=== PATIENT | female | born 1955 | race Caucasian/White ===

== ENCOUNTER 2018-02-24 12:45 | Emergency (ER) | payer OTHER ==
[~2018-02-24] VITALS: Ht 162.6 cm; Wt 99.8 kg
[~2018-02-24 12:45] MED LIST: MOBIC15 MG PO
[2018-02-24 13:39] LABS: ABSOLUTE BASOPHIL COUNT 0 /CUMM (0.0-0.2); ABSOLUTE EOSINOPHIL COUNT 0.1 /CUMM (0.0-0.7); ABSOLUTE GRANULOCYTE CT 3.1 /CUMM (1.4-6.5); ABSOLUTE LYMPH COUNT 0.8 /CUMM (1.2-3.4); ABSOLUTE MONOCYTE COUNT 0.4 /CUMM (0.10-0.60); BASOPHIL % 0.5 % (0.0-2.0); EOSINOPHIL % 1.9 % (0-5); GRANULOCYTE % 70.8 % (42.2-75.2); HEMATOCRIT 34.7 % (37-47); MEAN CORPUSCULAR HGB 23.1 PG (27.0-31.0); MEAN CORPUSCULAR HGB CONC 31.8 G/DL (33.0-37.0); MEAN CORPUSCULAR VOLUME 72.4 FL (81.0-99.0); MEAN PLATELET VOLUME 9.3 FL (7.4-10.4); PLATELET COUNT 88 /CUMM (130-400); RED BLOOD CELL CT 4.78 /CUMM (4.20-5.40); WHITE BLOOD CELL COUNT 4.4 /CUMM (4.8-10.8)
--- NOTE | 2018-02-24 14:14 | ED GENERAL ADULT ---
History of Present Illness General Chief Complaint: General Adult Stated Complaint: SIB PCP FOR "NOT FEELING THAT WELL" X1 WEEK Source: patient Exam Limitations: no limitations Vital Signs & Intake/Output Vital Signs & Intake/Output Vital Signs Date Time Temp Pulse Resp B/P B/P Pulse O2 O2 Flow FiO2 Mean Ox Delivery Rate 02/24 1547 98.2 82 17 162/86 97 Room Air 02/24 1253 97.6 71 20 163/83 95 Room Air Allergies Coded Allergies: codeine (Intermediate, N/V 02/24/18) morphine (Intermediate, N/V 02/24/18) oxycodone (Intermediate, N/V 02/24/18) Reconcile Medications Cephalexin (Keflex) 500 MG CAPSULE 1 CAP PO BID cellulitis right arm/UTI Ibuprofen (Motrin Ib) 200 MG TABLET 3 TAB PO TID PRN PAIN (Reported) Triage Note: PT SENT BY PCP BAN FOR S/S OF R FLANK TO ABD PAIN AND NOW R ELBOW PAIN/REDNESS SINCE THIS MORNING. HAS HX OF KIDNEY STONES/STENTS AND KIDNEY FAILURE. STATES THIS PAIN FEELS SIMLIAR ONLY DIFFERENCE IS THE PAIN IS WORSE WHEN LAYING DOWN. REPORTS INCREASED URINARY FREQUENCY BUT DENIES OTHER S/S. +N/-V (+WRETCHING), +DIARRHEA ON TUESDAY BUT NOT SINCE, LNBM YESTERDAY. OUMOU GAONA EVALUATING PATIENT AT TRIAGE. Triage Nurses Notes Reviewed? yes HPI: 62 year old female with PMH renal stones requiring stents (since removed) and acute renal failure (resolved) in presenting with one week history of right flank pain radiating to abdomen. Pain is intermittent and sharp in nature. She states it feels similar to renal stones in the past, however not as severe. She has tried to increase PO intake of water and cranberry juice. She has taken Motrin 600-800mg for the past two days with moderate relief of sx. Patient states she was previously treated by Dr. Murcia and required stenting. Her stones have been analyzed and found to be uric acid stones. She has not had any stones since 2010. Since that time she has had an intentional 100lb weight loss. She notified Dr. Robb her PCP of her sx for the past week and he recommended she come to the ED. Of note: patient also reports right elbow redness, swelling, warmth, and tenderness that started this morning. She reports associated nausea without vomiting, diarrhea last week that has since resolved. Denies any chest pain, SOB, dysuria, hematuria, change in bowel habits. 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 (Fariba Fernandes MD) Past History Travel History Traveled to [place] past 21 day No Medical History Any Pertinent Medical History? see below for history Neurological: NONE EENT: NONE Cardiovascular: NONE Respiratory: NONE Gastrointestinal: NONE Hepatic: NONE Renal: nephrolithiasis, ACUTE RENAL FAILURE Musculoskeletal: RUPTURED DISC L ANKLE FX Psychiatric: NONE Endocrine: NONE Blood Disorders: NONE Cancer(s): NONE BUSINESS ADVISOR/Reproductive: miscarriage Influenza Vaccine: 03/15/05 Surgical History Surgical History: hysterectomy, TONSILECTOMY LUMBAR LAMINECTOMY Psychosocial History Who do you live with Son Services at Home None What is your primary language Turkish Tobacco Use: Quit >30 days ago ETOH Use: denies use Illicit Drug Use: denies illicit drug use Family History Hx Contributory? No (Fariba Fernandes MD) Review of Systems Review of Systems Constitutional: Reports: no symptoms. EENTM: Reports: no symptoms. Respiratory: Reports: no symptoms. Cardiovascular: Reports: no symptoms. GI: Reports: abdominal pain, bloating, diarrhea, nausea. Denies: constipation, bloody stool, changes in stool, vomiting. Genitourinary: Reports: frequency. Denies: dysuria, hematuria, urgency. Musculoskeletal: Reports: back pain (right flank radiate to abd). Skin: Reports: rash (right elbow). (Fariba Fernandes MD) Physical Exam Physical Exam General Appearance: well developed/nourished, no apparent distress, alert, awake , obese Head: atraumatic, normal appearance Eyes: Bilateral: normal appearance. Ears, Nose, Throat: moist mucus membranes Neck: normal inspection, supple, full range of motion Respiratory: normal breath sounds, chest non-tender, no respiratory distress Cardiovascular: regular rate/rhythm, normal peripheral pulses Peripheral Pulses: 2+ radial (R), 2+ radial (L) Gastrointestinal: tenderness (TTP diffusely) Back: normal inspection, NO CVA tenderness Extremities: pedal edema Skin: rash, right elbow with erythema, edema, warmth, tenderness to palpation Core Measures ACS in differential dx? No CVA/TIA Diagnosis: No Sepsis Present: No Sepsis Focused Exam Completed? No (Fariba Fernandes MD) Progress Differential Diagnoses I considered the following diagnoses in my evaluation of the patient: [renal stones vs gastroenteritis vs cellulitis vs renal mass vs uti vs pyelonephritis] 15:00 CT results show bilateral non obstructing renal stones and approx 7x7cm right renal mass associated with previous right adrenal mass. Lymphadenopathy is noted. Findings suspicious for RCC. Patient notified; will contact her Nephrology team and follow up. She was given a paper copy of CT findings. ED work up also demonstrates UTI and cellulitis of right elbow. Will send Rx for Keflex 500mg q 12 hours for 10 days. Patient to follow up with PCP. Urine cultures sent. Plan of Care: Orders Procedure Date/time Status Add-on Test (ER Only) 02/24 1500 Active CULTURE,URINE 02/24 1434 Active URINALYSIS 02/24 1301 Complete COMPREHENSIVE METABOLIC PANEL 02/24 1301 Complete CBC WITHOUT DIFFERENTIAL 02/24 1301 Complete Laboratory Tests 02/24/18 1315: Anion Gap 7, Estimated GFR > 60, BUN/Creatinine Ratio 20.0, Glucose 95, Calcium 9.0, Total Bilirubin 0.6, AST 22, ALT 34, Alkaline Phosphatase 55, Total Protein 6.3, Albumin 3.9, Globulin 2.4, Albumin/Globulin Ratio 1.6, CBC w Diff NO MAN DIFF REQ, RBC 4.78, MCV 72.4 L, MCH 23.1 L, MCHC 31.8 L, RDW 19.0 H, MPV 9.3 , Gran % 70.8, Lymphocytes % 18.8 L, Monocytes % 8.0, Eosinophils % 1.9, Basophils % 0.5, Absolute Granulocytes 3.1, Absolute Lymphocytes 0.8 L, Absolute Monocytes 0.4, Absolute Eosinophils 0.1, Absolute Basophils 0, Urine Color YEL, Urine Clarity HAZY H, Urine pH 6.0, Ur Specific [place] 1.015, Urine Protein NEG, Urine Ketones NEG, Urine Nitrite POS H, Urine Bilirubin NEG, Urine Urobilinogen 0.2, Ur Leukocyte Esterase LARGE H, Ur Microscopic SEDIMENT EXAMINED, Urine RBC 1-3, Urine WBC 10-15 H, Ur Epithelial Cells FEW, Urine Bacteria FEW H, Urine Hemoglobin SMALL H, Urine Glucose NEG Microbiology 02/24 1315 URINE ROUT: Urine Culture - RECD Initial ED EKG: none (Fariba Fernandes MD) Departure Departure Time of Disposition: 1503 Disposition: HOME OR SELF CARE Condition: Stable Clinical Impression Primary Impression: Renal mass, right Secondary Impressions: Bilateral kidney stones Cellulitis of right upper extremity UTI (urinary tract infection) Qualifiers: Urinary tract infection type: acute cystitis Hematuria presence: without hematuria Qualified Code: N30.00 - Acute cystitis without hematuria Referrals: Ban MAC,Cristian Kennedy (PCP/Family) Additional Instructions: Please follow up with your PCP. Have him follow up on urine culture results. Complete your full antibiotic course for urinary tract infection and right upper extremity cellulitis. Make an appointment and follow up with Nephrology regarding right renal mass found on CT imaging today. Return to ED if symptoms worsen or for any concerns. Departure Forms: Customer Survey General Discharge Information Prescriptions: Current Visit Scripts Cephalexin (Keflex) 1 CAP PO BID #[id number] CAP (Fariba Fernandes MD) PA/RETAIL PRICING COORDINATOR Co-Sign Statement Statement: ED Attending supervision documentation- I saw and evaluated the patient. I have also reviewed all the pertinent lab results and diagnostic results. I agree with the findings and the plan of care as documented in the PA's/RETAIL PRICING COORDINATOR's documentation. x I have reviewed the ED Record and agree with the PA's/RETAIL PRICING COORDINATOR's documentation. [] Additions or exceptions (if any) to the PAs/RETAIL PRICING COORDINATOR's note and plan are summarized below: [] (Omer MAC,Yevgeniy) Critical Care Note Critical Care Note Critical Care Time: non-applicable (Fariba Fernandes MD)
--- NOTE | 2018-02-24 14:22 | CT SCAN REPORT ---
EXAMINATION: CT ABDOMEN AND PELVIS WITHOUT CONTRAST CLINICAL INFORMATION: 62-year-old female with left flank and abdominal pain. COMPARISON: CT of the abdomen and pelvis done on 10/05/2010. TECHNIQUE: Multidetector volumetric imaging was performed from the superior aspect of the liver through the pubic symphysis. Sagittal and coronal reformatted images were obtained on the technologist's workstation. DLP: 1154.17 mGy-cm FINDINGS: LUNG BASES: The visualized lung bases are unremarkable. LIVER, GALLBLADDER, AND BILIARY TREE: No discrete intrahepatic focal abnormalities identified on these nonenhanced study. The gallbladder is unremarkable with no evidence of radiopaque gallstones, gallbladder wall thickening, or obvious pericholecystic inflammatory changes. PANCREAS: Unremarkable. SPLEEN: Mild splenomegaly is present, measures 17 cm at its maximum craniocaudal dimension. ADRENAL GLANDS: The left adrenal gland is visualized and is unremarkable. The right adrenal gland is not visualized. There is a lobulated solid-appearing retroperitoneal mass identified in the region of the right adrenal gland, displacing the inferior vena cava anteriorly and is also extending into the aortocaval region and posterior to the right side of the aorta. The mass measures approximately 6.5 x 6.4 x 7.0 cm at its maximum craniocaudal by transverse by anteroposterior dimension (see the schultz images). KIDNEYS AND URETERS: The left kidney shows 2 punctate 2-3 mm nonobstructing calculi at inferior calyces. There are multiple radiopaque calculi identified within the right kidney, the largest appears linear and extending into the right renal pelvis and measures approximately 1.0 cm at its maximum transverse dimension without evidence of any hydronephrosis. The right ureter appears decompressed. There is a new lobulated soft tissue mass identified involving the superior pole of the right kidney extending along the midpart of the posterior right renal cortex, measures approximately 7.5 x 7.3 cm. This mass appears to be inseparable from the previously described upper right retroperitoneal mass seen in the region of the right adrenal gland. Evaluation is technically limited due to lack of intravenous contrast. Possible differential diagnostic consideration would include right renal neoplasm with extension into the right adrenal fossa, and adjacent retroperitoneum. Possible differential diagnostic consideration would also include lymphoma or metastatic disease. BLADDER: Suboptimally distended, grossly appears unremarkable. GASTROINTESTINAL TRACT: The small and large bowel are unremarkable. The appendix is unremarkable. ABDOMINAL WALL: No significant hernia is appreciated. LYMPH NODES: Lobulated soft tissue mass is noted within the upper retroperitoneum at the level of the origin of the superior mesenteric artery, both renal arteries, most consistent with lymphadenopathy. Evaluation is technically limited due to lack of contrast. VASCULAR: Diffuse atherosclerotic disease is noted within the aorta and its branches without aneurysm formation. 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 PELVIC VISCERA: There is no pelvic mass present. There is no free fluid and/or free air present. OSSEOUS STRUCTURES: Mild thoracolumbar levoscoliosis and superimposed [id number] multilevel degenerative spondylosis-related changes are seen. IMPRESSION: 1. Technically limited study due to lack of intravenous contrast. 2. Abnormal noncontrast CT scan of the abdomen and pelvis with evidence of interval development of right upper retroperitoneal soft tissue mass in the region of the right adrenal fossa which is inseparable from new solid-appearing right renal mass, as described above. There is evidence of upper retroperitoneal presumed lymphadenopathy present. Possible differential diagnostic consideration would include right renal neoplasm with adjacent presumed metastatic lymphadenopathy versus lymphoma or metastatic disease. 3. Bilateral nonobstructing renal calculi (right greater than left). The largest right renal calculus is seen within the right renal pelvis without any definite obstruction. Previously documented obstructing calculus seen at the right proximal ureter is no longer visualized. 4. Persistent stable mild splenomegaly. This critical result was discussed with OUMOU Li at 2:06 PM on 02/24/2018 and it was ascertained that the content and urgency of the report was understood at the time of direct communication.
[2018-02-24] MEDS ORDERED: MOTRIN IB200 M1 PO (14:33)
[2018-02-24] MEDS ORDERED: KEFLEX500 M1 PO (15:14)
[2018-02-24 15:47] VITALS: BP 162/86
== END 2018-02-24 15:48 ==
LOC: ERH 12:45
PROVIDERS: Physician Assistant Medical
DX: N28.89 Other specified disorders of kidney and ureter (principal); N20.0 Calculus of kidney; L03.113 Cellulitis of right upper limb; N39.0 Urinary tract infection, site not specified; N17.9 Acute kidney failure, unspecified; Z87.891 Personal history of nicotine dependence
CPT/HCPCS: 74176; 81001; 87086